=== PATIENT | female | born 1995 | race African-American/Black ===

== ENCOUNTER 2017-03-27 22:34 | Observation (INO) | payer MEDICAID ==
[~2017-03-27] VITALS: Ht 167.6 cm; Wt 115.2 kg
[2017-03-28] MEDS: SODIUM CHLORIDE 0.9% 1,000 ML IV SCH ×2 (00:49→02:08)
[2017-03-28] MEDS ORDERED: ACETAMINOPHEN 500MG TABLET PO SCH (02:00)
[2017-03-28] MEDS ORDERED: PREN1TAB78 PO (02:23)
== END 2017-03-28 02:35 | disposition home or self-care (01) ==
LOC: L&D 22:34
PROVIDERS: ADMIT Specialist; ATTEND Specialist
DX: O26.892 Other specified pregnancy related conditions, second trimester (principal); R10.30 Lower abdominal pain, unspecified; N89.8 Other specified noninflammatory disorders of vagina; Z3A.22 22 weeks gestation of pregnancy
CPT/HCPCS: 76805; 96360; 99281; G0378; J7030

== ENCOUNTER 2017-12-31 11:39 | Emergency (ER) | payer MEDICAID ==
[~2017-12-31] VITALS: Ht 165.1 cm; Wt 67.0 kg
[~2017-12-31 11:39] MED LIST: PREN1TAB78 PO
[2017-12-31] MEDS ORDERED: SODIUM CHLORIDE 0.9% 1,000 ML IV ONE (12:23)
[2017-12-31] MEDS ORDERED: ACETAMINOPHEN 325MG TABLET PO STA (12:23)
[2017-12-31 13:20] LABS: BASOPHILS % 0.3 % (0.0-2.0); EOSINOPHILS % 0.8 % (0.0-5.0); HEMATOCRIT. 36.2 % (36.0-48.0); HEMOGLOBIN. 11.5 g/dL (12.0-16.0); LYMPHOCYTES % 8.6 % (20.0-50.0); MEAN CORPUSCULAR HEMOGLOBIN 24.1 pg (28.0-32.0); MEAN CORPUSCULAR VOLUME 75.5 fL (81.0-99.0); MEAN PLATELET VOLUME 10.3 fl (7.4-10.4); MONOCYTES % 7.5 % (2.0-8.0); NEUTROPHILS % 82.8 % (40.0-76.0); PLATELET 217 x1000/uL (130-400); RED BLOOD CELL COUNT 4.79 mill/uL (4.2-5.4); RED CELL DISTRIBUTION WIDTH 18.9 % (11.6-14.6)
[2017-12-31 13:26] LABS: CHLORIDE 105 mEq/L (98-107)
[2017-12-31 13:27] LABS: INR 1.1; PROTHROMBIN TIME 10.8 sec (9.1-11.1)
[2017-12-31 13:30] LABS: HCG SCREEN NEGATIVE
[2017-12-31 15:15] VITALS: BP 109/50
== END 2017-12-31 15:15 | disposition home or self-care (01) ==
LOC: ER 11:39
DX: R55 Syncope and collapse (principal); R42 Dizziness and giddiness; R51 Headache; F12.10 Cannabis abuse, uncomplicated
CPT/HCPCS: 36415; 70450; 71045; 80053; 81025; 84703; 85025; 85610; 93005; 99285; J7030